=== PATIENT | male | born 2000 | race Caucasian/White ===

== ENCOUNTER 2022-12-06 08:20 | Emergency (ER) | payer OTHER, SELFPAY ==
[2022-12-06 09:05] VITALS: BP 134/86; PULSE 93; RESP 19; TEMP 37.1; O2SAT 99; BMI 19.5
--- NOTE | 2022-12-06 09:05 | DI.RAD.S_ITS ---
PROCEDURE: XR CHEST 1V INDICATIONS: chest pain TECHNIQUE: One view of the chest was acquired. COMPARISON: None. FINDINGS: Surgical changes and devices: None. Lungs and pleura: No airspace consolidation or pleural effusion. Mediastinum: Mediastinal contours appear normal. Heart size is normal. Bones and chest wall: No suspicious bony lesions. Overlying soft tissues appear unremarkable. IMPRESSION: No acute radiographic abnormality. Dictated by: Bryant Fournier M.D. on 12/06/2022 at 9:55 Approved by: Bryant Fournier M.D. on 12/06/2022 at 9:56
[2022-12-06 09:42] VITALS: O2SAT 100
[2022-12-06 10:15] LABS: Prothrombin Time 11.4 SECONDS (10.1-12.7)
[2022-12-06 10:17] LABS: Add Manual Diff / Slide Review NO; Basophils Absolute Auto 0 /uL (0-100); Basophils Percent Auto 0.5 % (0-2); Eosinophils Absolute Auto 0 /uL (0-450); Eosinophils Percent Auto 0.7 % (2-4); Hematocrit 45.9 % (41-53); Lymphocytes Absolute Auto 1300 /uL (1100-4500); Lymphocytes Percent Auto 28.5 % (25-40); Mean Corpuscular HGB Conc 34.9 % (30-36); Mean Corpuscular Hemoglobin 30.8 PG (26-34); Mean Corpuscular Volume 88.2 fL (80-100); Monocytes Absolute Auto 500 /uL (0-900); Monocytes Percent Auto 9.9 % (3-14); Neutrophils Absolute Auto 2800 /uL (1500-7000); Neutrophils Percent Auto 60.4 % (50-75); Platelet Count 175 X10^3/uL (150-400); Red Blood Cell Count 5.21 X10^6/uL (4.5-5.9); Red Cell Distribution Width 13.1 % (11.6-14.8); White Blood Cell Count 4.6 X10^3/uL (4.5-11.0)
[2022-12-06 10:18] LABS: PTT Partial Thromboplastin Tim 33 SECONDS (26-36)
[2022-12-06 10:32] LABS: Alanine Aminotransferase 21 IU/L (<50); Albumin 4.7 g/dL (3.5-5.0); Albumin Globulin Ratio 1.5 (1.0-2.8); Alkaline Phosphatase 56 U/L (38-126); Aspartate Aminotransferase 21 IU/L (17-59); BUN Creatinine Ratio 21.4 (6-22); Bilirubin Total 0.6 mg/dL (0.2-1.3); Blood Urea Nitrogen 18 mg/dL (9-20); Calcium 9.5 mg/dL (8.4-10.2); Carbon Dioxide 28 mmol/L (22-32); Chloride 102 mmol/L (98-107); Creatine Kinase 50 U/L (55-170); Estimated Glomerular Filt Rate > 60 mL/min (>60); Globulin 3.1 g/dL (1.7-4.1); Glucose 104 mg/dL (70-100); HEMOLYSIS < 15 (0-50); Lipase 41 U/L (23-300); Potassium 4.3 mmol/L (3.4-5.1); Sodium 139 mmol/L (137-145); Total Protein 7.8 g/dL (6.3-8.2)
[2022-12-06 10:44] LABS: Troponin I < 0.012 ng/mL (0.01-0.034)
--- NOTE | 2022-12-06 11:03 | ED_ITS ---
HPI - Chest Pain General Chief Complaint: Chest Pain Stated Complaint: pain LT side of chest T-1 Time Seen by Provider: 12/06/22 10:35 Source: patient Mode of arrival: Family Vehicle Limitations: no limitations History of Present Illness HPI narrative: Patient is a 22-year-old male history of asthma who presents with left-sided chest. He reports that he had some chest discomfort 2 weeks ago he had an EKG he started on Advair at that time. Last night he reports that if he laid on his left side hurt but if he rolled over toes right side got better. It is not reproducible with palpation but does seem to be positional. He has no palpitations no shortness of breath, denies cough fever or chills. No abdominal pain nausea. He has not traveled. He has not tried anything for pain. He does take medicine for some anxiety and acid reflux as. Related Data Allergies Allergy/AdvReac Type Severity Reaction Status Date / Time No Known Drug Allergies Allergy Verified 12/06/22 09:13 Review of Systems Review of Systems ROS Unobtainable: All systems reviewed & are unremarkable except as noted in HPI and below Patient History Social History Smoking Status: Former smoker Smoking Status: Former smoker tobacco type: cigarettes alcohol intake frequency: holidays/special occasions only Substance Use Type: does not use Exam Initial Vital Signs Initial Vital Signs: Vital Signs Temperature 98.7 F 12/06/22 09:05 Pulse Rate 93 H 12/06/22 09:05 Respiratory Rate 19 12/06/22 09:05 Blood Pressure 134/86 12/06/22 09:05 Pulse Oximetry 99 12/06/22 09:05 Oxygen Delivery Method Room Air 12/06/22 09:05 GENERAL: Alert pleasant 22 her whole male no acute distress HEENT: Head atraumatic,EOMI, pupils reactive, face symmetric, moist mucous membranes CARDIOVASCULAR: Regular rate and rhythm without murmurs, rubs or gallops. Not reproducible to touch RESPIRATORY: Breath sounds equal bilaterally, no wheezes rales or rhonchi. ABDOMEN: Soft, nontender. Normoactive bowel sounds all 4 quadrants. No guarding or rebound. EXTREMITIES: Normal range of motion, no clubbing or edema. Neurovascularly intact NEUROLOGICAL: Alert and oriented x4. SKIN: Warm, dry, no laceration, no petechiae, no rashes or lesions. Scores HEART Score Heart Score history: Slightly Suspicious Heart Score EKG: Normal Heart Score Age: < 45 years old Heart Score risk factors: No known risk factors Heart Score troponin: < or = to normal limit Heart Score Total: 0 PERC Score Age greater than or equal to 50 years: No Heart rate greater than or equal to 100 bpm: No Room Air O2 Sat less than 95%: No Unilateral leg swelling: No Recent trauma or surgery: No Hemoptysis: No Prior PE or DVT: No Hormone Use: No Total PERC Score: 0 Course Orders Ordered: ED Orders 12/06/22 09:05 XR chest 1V Stat 12/06/22 09:17 EKG-12 Lead Stat 12/06/22 10:02 Complete Blood Count AUTO DIFF Stat Comprehensive Metabolic Panel Stat Lipase Stat Magnesium Stat PTT Partial Thromboplastin Carlos Stat Prothrombin Time INR Stat Troponin & CK Cardiac Panel Stat Discontinued Medications Aspirin (Aspirin 81 Mg Chew Tab) 324 mg PO NOW ONE Stop: 12/06/22 09:06 Last Admin: 12/06/22 09:16 Dose: Not Given Documented By: MADHAVI Vital Signs Vital signs: Vital Signs - 8 hr 12/06/22 09:05 12/06/22 09:42 Temperature 98.7 F Pulse Rate 93 H Respiratory Rate 19 Blood Pressure 134/86 Pulse Oximetry 99 100 Oxygen Delivery Method Room Air Room Air MDM - Chest Pain Lab Data 12/06/22 10:02 12/06/22 10:02 Labs: Lab Results 12/06/22 12/06/22 12/06/22 Range/Units 10:02 10:02 10:02 WBC 4.6 (4.5-11.0) X10^3/uL RBC 5.21 (4.5-5.9) X10^6/uL Hgb 16.0 (13.5-17.5) g/dL Hct 45.9 (41-53) % MCV 88.2 (80-100) fL MCH 30.8 (26-34) PG MCHC 34.9 (30-36) % RDW 13.1 (11.6-14.8) % Plt Count 175 (150-400) X10^3/uL Neut % (Auto) 60.4 (50-75) % Lymph % (Auto) 28.5 (25-40) % [place] % (Auto) 9.9 (3-14) % Eos % (Auto) 0.7 L (2-4) % Baso % (Auto) 0.5 (0-2) % Neut # (Auto) 2800 (8622-5385) /uL Lymph # (Auto) 1300 (6781-7555) /uL [place] # (Auto) 500 (0-900) /uL Eos # (Auto) 0 (0-450) /uL Baso # (Auto) 0 (0-100) /uL PT 11.4 (10.1-12.7) SECONDS INR 1.0 (0.9-1.3) APTT 33 (26-36) SECONDS Sodium 139 (137-145) mmol/L Potassium 4.3 (3.4-5.1) mmol/L Chloride 102 (98-107) mmol/L Carbon Dioxide 28 (22-32) mmol/L BUN 18 (9-20) mg/dL Creatinine 0.84 (0.66-1.25) mg/dL Estimated GFR > 60 (>60) mL/min BUN/Creatinine Ratio 21.4 (6-22) Glucose 104 H (70-100) mg/dL Calcium 9.5 (8.4-10.2) mg/dL Magnesium 2.0 (1.6-2.3) mg/dL Total Bilirubin 0.6 (0.2-1.3) mg/dL AST 21 (17-59) IU/L ALT 21 (<50) IU/L Alkaline Phosphatase 56 (38-126) U/L Total Creatine Kinase 50 L (55-170) U/L CK-MB (CK-2) TNP CK-MB (CK-2) Rel Index TNP Troponin I < 0.012 (0.01-0.034) ng/mL Total Protein 7.8 (6.3-8.2) g/dL Albumin 4.7 (3.5-5.0) g/dL Globulin 3.1 (1.7-4.1) g/dL Albumin/Globulin Ratio 1.5 (1.0-2.8) Lipase 41 (23-300) U/L Imaging Data Chest x-ray: Radiologist's Impression: PROCEDURE:? XR CHEST 1V ? INDICATIONS:? chest pain ? TECHNIQUE:? One view of the chest was acquired.? ? COMPARISON:? None. ? FINDINGS:? ? Surgical changes and devices:? None.? ? Lungs and pleura:? No airspace consolidation or pleural effusion. ? Mediastinum:? Mediastinal contours appear normal.? Heart size is normal.? ? Bones and chest wall:? No suspicious bony lesions.? Overlying soft tissues appear unremarkable.? ? IMPRESSION:? No acute radiographic abnormality. ? ? Dictated by: Bryant Fournier M.D. on 12/06/2022 at 9:55 ? ? ECG Data Interpretation: Normal sinus rhythm rate 83 OK 150 QRS [address] changes no OK depression no abnormalities MDM Narrative Medical decision making narrative: Patient presents with left-sided pain which is worse on his left side better in a different position. It seems to be musculoskeletal. Unlikely to be acute coronary syndrome pulmonary embolism or pericarditis. Blood work reassuring, no elevation in troponin electrolyte abnormality leukocytosis chest x-ray is negative. PERC score and heart score both low. Definitely reproducible with different positioning consistent musculoskeletal. Recommend he follow-up with PCP Discharge Plan Departure Patient Disposition: Home Clinical Impression: Atypical chest pain Instructions: DI for Atypical Chest Pain Activity Restrictions/Additional Instructions: *You have been diagnosed with atypical chest pain *What to do: At this time recommend supportive care. If it hurts change position or stop doing what you are doing. He may try ice or heat. *Continue to take medications as directed Tylenol 1000 mg every 6 hours Motrin 600 mg every 6-8 hours if needed for [id number] pain *Follow up with your primary care provider in 2-3 days or call [phone] *Return to ER if you should have increasing chest pain shortness of breath palpitations passing out or any new, worsening or concerning symptoms Referrals: ProviderPamela [Primary Care Provider] - Stand Alone Forms: Patient Portal/API
== END 2022-12-06 12:03 | disposition home or self-care (01) ==
PROVIDERS: Emergency Provider Emergency Medicine
DX: R07.89 Other chest pain (principal)
CPT/HCPCS: 36415; 71045; 80053; 82550; 83690; 83735; 84484; 85025; 85610; 85730; 93005; 93010; 99284

== ENCOUNTER → 2022-12-30 13:28 | Outpatient (CLI) | payer OTHER, SELFPAY ==
--- NOTE | 2022-12-30 13:30 | DI.ECHO.S_ITS ---
[facility] +---------+ : : [address] : : : : [id number] : : : : Phone: [phone]+ Echocardiogram Report + + :Name: SUSAN RABAGO Study Date: 12/30/2022 Height: 71 in : :[facility] ReadingLocation: Weight: 140 lb: : Gender: Male BSA: 1.8 m2 : :: 2000 Age: 22 yrs : :Reason For Study: ENCOUNTER FOR GENERAL ADULT MEDICAL : :EXAMINATION HR: 80 : :Ordering Physician: OMAR, : :SOPHIA Performed By: NANCIE RHODES : :Referring: SOPHIA NELSON : + + Interpretation Summary Normal echo study. Procedure: A two-dimensional transthoracic echocardiogram with color flow and Doppler was performed. The study quality was technically adequate. There is no prior echocardiogram noted for this patient. The patient was in normal sinus rhythm during the exam. Left Ventricle: The left ventricle is normal in size and wall thickness. The ejection fraction is estimated to be 55-60%. There are no focal wall motion abnormalities. Diastolic parameters suggest probable normal left ventricular diastolic function and normal filling pressures. Right Ventricle: The right ventricle grossly appears normal in size with probable normal systolic function. The right ventricular systolic function is normal. Atria: Both atria are normal in size. There is no Doppler evidence for an interatrial shunt. Mitral Valve: The mitral valve is normal in structure and function. There is no mitral regurgitation noted. Aortic Valve: The aortic valve opens well. There is no aortic valve stenosis. No aortic regurgitation is present. Tricuspid Valve: The tricuspid valve is normal. There is trace tricuspid regurgitation. The right ventricular systolic pressure is estimated to be at least 14 mmHg based on an estimated right atrial pressure of 3 mm Hg. Pulmonic Valve: The pulmonic valve leaflets are thin and pliable; valve motion is normal. There is trace pulmonic regurgitation. Great Vessels: The aortic root is normal size. The ascending aorta could not be visualized. The IVC is of normal diameter and collapses greater than 50% with a sniff. This suggests a low right atrial pressure of 3 mm Hg. Pericardium/ Pleura There is no pericardial effusion. There is no pleural effusion. MMode/2D Measurements & Calculations LVIDd: 4.3 cm LVOT diam: 2.0 cm LVIDs: 2.9 cm Ao root diam: 3.3 cm FS: 32.1 % IVSd: 0.76 cm LVPWd: 0.80 cm LV davis. diameter/BSA (cm/m^2): 2.3 LV sys. diameter/BSA (cm/m^2): 1.6 LA A2 area: 16.8 cm2 RA long axis: 3.7 cm LA A4 area: 8.0 cm2 RA area: 9.4 cm2 LA length (vol): 3.5 cm RA vol: 20.7 ml LA vol: 32.5 ml RA : 11.4 ml/m2 LA vol index: 18.0 ml/m2 IVC diam: 1.5 cm TAPSE: 1.9 cm Doppler Measurements & Calculations Ao V2 max: 93.7 cm/sec LVOT Max James: 86.4 cm/sec Ao V2 mean: 64.9 cm/sec LV V1 max P.0 mmHg Ao max P.5 mmHg LV V1 VTI: 14.5 cm Ao mean P.9 mmHg WALT(I,D): 2.8 cm2 Ao V2 VTI: 16.5 cm WALT(V,D): 2.9 cm2 sev ratio: 0.88 WALT indexed to BSA (cm^2/m^2): 1.5 MV E max james: 58.6 cm/sec TR max james: 162.6 cm/sec MV A max james: 46.7 cm/sec TR max P.6 mmHg MV E/A: 1.3 PA V2 max: 82.8 cm/sec Med Peak E' James: 11.4 cm/sec PA V2 mean: 61.0 cm/sec E/E' med: 5.2 PA mean P.6 mmHg Lat Peak E' James: 10.6 cm/sec PA pr(Accel): 15.6 mmHg E/E' lat: 5.6 E/e' average: 5.4 MV dec time: 0.21 sec SV(LVOT): 45.6 ml Electronically signed by: Luann Esparza on Reading Physician:12/30/2022 04:05 PM
== END ==
PROVIDERS: Referring Provider Orthopaedic Surgery; Visit Provider Orthopaedic Surgery
DX: Z00.00 Encounter for general adult medical examination without abnormal findings (principal)
CPT/HCPCS: 93306

== ENCOUNTER 2023-02-17 11:02 | Day surgery (SDC) | payer OTHER, SELFPAY ==
--- NOTE | 2023-02-17 | PATH_ITS ---
[facility] Accession Number: [id number] No. of containers..02 Tissue . 01 Material submitted: . PART A: duodenum - DUODENUM PART B: stomach - ANTRUM . 01 Diagnosis: A. Duodenum, Biopsy: Duodenal mucosa with no diagnostic abnormality. Negative for active inflammation, features of sprue, dysplasia, or malignancy. . B. Stomach, Antrum, Biopsy: Antral mucosa with mild chronic gastritis. Negative for Helicobacter by immunohistochemistry. Negative for intestinal metaplasia. Negative for dysplasia and malignancy. [facility] 02/21/2023 1719 Local . 01 Electronically signed: . Tere Joya MD, Pathologist NPI- [id number] . 01 Gross description: . Part A: DUODENUM: Received in formalin are 4 fragment(s) of avila, soft tissue measuring 0.1 x 0.1 x 0.1 cm to 0.3 x 0.3 x 0.2 cm submitted entirely in 1 cassette(s) Part B: ANTRUM: Received in formalin is 1 fragment(s) of avila, soft tissue measuring 0.3 x 0.1 x 0.1 cm submitted entirely in 1 cassette(s) /TIM 02/19/2023 0106 Local . 01 Microscopic: . B. An immunohistochemical stain was performed to evaluate for Helicobacter organisms and is negative. The control stain showed appropriate reactivity. . * This test was developed and its performance characteristics determined by [employer]. It has not been cleared or approved by the U.S. Food and Drug Administration. The FDA has determined that such clearance or approval is not necessary. This test is used for clinical purposes. It should not be regarded as investigational or for research. . 01 Pathologist provided ICD-10: K21.9 . 01 CPT . 867497, 596847, R49581 Specimen Comment: A courtesy copy of this report has been sent to [phone] Performed at: 01 [facility] [address] [place] [address], [place], [place] [id number] MD Triston Richardson MD Phone: [phone]
[2023-02-17 11:29] VITALS: BP 133/89; PULSE 79; RESP 17; TEMP 36.3; O2SAT 100; BMI 19.5
[2023-02-17] MEDS: LACTATED RINGERS 1,000 ML 42 ML IV (11:40)
--- NOTE | 2023-02-17 11:55 | P.HP_ITS ---
History of Present Illness History of Present Illness Date Patient Seen: 02/17/23 Time Patient Seen: 11:55 Chief complaint: EGD Narrative: I reviewed the recent office note by [place]. There is still some left upper quadrant pain although pain has improved. He still has an erratic bowel. He remains on PPI and off NSAIDs. [facility] Social History household members: spouse Smoking Status: Never smoker alcohol intake: current Meds Home Medications and Allergies Home Medications Medication Instructions Recorded Confirmed Type albuterol 90 mcg/actuation aerosol See Rx Instructions .Route .COMPLEX 02/17/23 02/17/23 History inhaler hydroxyzine HCl 10 mg tablet 10 mg PO PRN PRN Anxiety 02/17/23 02/17/23 History omeprazole 20 mg capsule,delayed 20 mg PO DAILY 02/17/23 02/17/23 History release tizanidine 2 mg tablet 2 mg PO PRN PRN neck pain 02/17/23 02/17/23 History Allergies Allergy/AdvReac Type Severity Reaction Status Date / Time No Known Drug Allergies Allergy Verified 02/17/23 11:25 Review of Systems Review of Systems ROS: Yes All systems reviewed with the patient and are negative except as otherwise documented Exam Vital Signs (past 8 hours): - 02/17/23 11:29 Temperature 97.4 F L Pulse Rate 79 Respiratory Rate 17 Blood Pressure 133/89 Pulse Oximetry 100 Oxygen Delivery Method Room Air Oxygen Flow Rate 0 Oxygen Delivery Method Room Air Oxygen Flow Rate 0 Const General: cooperative HENMT Head: normal to inspection Eyes General: appearance normal, both eyes and all related structures Neck Neck: normal visual inspection Chest Chest: normal inspection of the chest Resp Effort & Inspection: normal respiratory effort Cardio Rate: regular rate GI Inspection: normal to inspection Skin General: no rashes or lesions noted Neuro General: patient alert and patient awake Extrem General: normal to inspection and no pedal edema Psych Appearance: grossly normal Assessment & Plan Assessment & Plan narrative: 23-year-old with subacute onset of left upper quadrant pain altered bowel habit. Diagnostic EGD is pursued today.
--- NOTE | 2023-02-17 11:57 | PM.PREOP ---
Pre-operative Note Interval Note History & Physical reviewed/Exam performed by Physician: Yes Changes to H&P: No ASA Class (for procedural sedation): II
--- NOTE | 2023-02-17 12:16 | PM.OP.EGD ---
Operative Date/Time/Diagnoses Date of procedure: 02/17/23 Time of procedure: 12:17 Pre-op diagnosis: Left upper quadrant pain altered bowel habits Post-op diagnosis: same Procedure & Clinicians Study performed: EGD with biopsies Same procedure as scheduled: Yes Indications: Left upper quadrant pain and altered bowel habits Surgeon: Leland Mendez Procedure Notes SCOAP/Timeout: Done Procedure in detail: After the risks and benefits were explained, written and verbal informed consent was obtained. The patient was brought into the procedure room and placed into the left lateral decubitus position. Please see anesthesia notes for sedation details. The scope was introduced into the mouth through the bite block and advanced under direct visualization to the 2nd portion of the duodenum. The scope was slowly withdrawn carefully examining the mucosa for any defects or lesions. Retroflexed views were accomplished in the stomach. The stomach was decompressed, the scope was then removed from the patient who tolerated the procedure well. Sedation minutes: 10 Complications: none Impression: 1. Duodenum: No ulcers no mass lesions no strictures identified throughout. Random D2 biopsies were taken for exclusion of sprue. 2. Stomach: No ulcers no mass lesions no outlet obstruction. Mild gastropathy was noted and biopsies were therefore acquired from the antrum for exclusion of H pylori. Retroflexed views of the LES were unremarkable. 3. Esophagus: The squamocolumnar junction correlated with the top of the gastric folds. GEJ was at about 45 cm from the incisors. No acute erosive changes no strictures no mass lesions. The esophagus was without gross lesion. Endoscopic diagnosis 1. Mild gastropathy 2. Otherwise visually unremarkable EGD Post-procedure Plan for aftercare: 1. Await histopathology. 2. Continue to avoid NSAIDs. 3. Follow up trend in [place]. Disposition: PACU
[2023-02-17 12:22] VITALS: BP 102/67; PULSE 80; RESP 16; TEMP 36.2; O2SAT 94
[2023-02-17 12:26] VITALS: BP 108/73; PULSE 76; RESP 19; O2SAT 93
[2023-02-17 12:31] VITALS: BP 111/82; PULSE 82; RESP 17; O2SAT 100
[2023-02-17 12:37] VITALS: BP 125/90; PULSE 75; RESP 13; TEMP 36.6; O2SAT 100
== END 2023-02-17 13:49 | disposition home or self-care (01) ==
PROVIDERS: PCP Physician Assistant; Referring Provider Internal Medicine Gastroenterology; Visit Provider Internal Medicine Gastroenterology
PROC: 0DJ08ZZ Inspection of Upper Intestinal Tract, Via Natural or Artificial Opening Endoscopic (ICD-10-PCS; CPT 43235; principal; 2023-02-17 12:30)
DX: K29.50 Unspecified chronic gastritis without bleeding (principal); R19.4 Change in bowel habit; K31.9 Disease of stomach and duodenum, unspecified
CPT/HCPCS: 43239

== ENCOUNTER → 2023-06-05 15:39 | Outpatient (CLI) | payer OTHER, SELFPAY | PROVIDERS: PCP Physician Assistant; Referring Provider Chiropractor; Visit Provider Chiropractor | DX: Q67.6 Pectus excavatum (principal); Z87.891 Personal history of nicotine dependence | CPT/HCPCS: 94060 ==